=== PATIENT | male | born 1985 | race Caucasian/White ===

== ENCOUNTER 2022-10-05 04:00 | Day surgery (SDC) | payer BC, OTHER ==
[2022-10-02 09:13] VITALS: BMI 25.8
[2022-10-05 06:23] VITALS: RESP 20
[2022-10-05] MEDS ORDERED: FENTANYL CITRATE/PF 50 MCG/ML VIAL ONE (07:02)
[2022-10-05] MEDS ORDERED: PROPOFOL 20 ML ONE (07:02)
[2022-10-05] MEDS ORDERED: MIDAZOLAM HCL 2 MG/2 ML SINGLE DOSE VIAL ONE (07:03)
[2022-10-05] MEDS ORDERED: ONDANSETRON 4 MG/2 ML VIAL ONE (08:04)
[2022-10-05 09:06] VITALS: TEMP 97.1
[2022-10-05 09:56] VITALS: BP 114/64; PULSE 76
== END 2022-10-05 10:40 | disposition home or self-care (01) ==
LOC: JASU-SURG 04:00
PROVIDERS: ATTEND Urology
PROC: 0TF4XZZ Fragmentation in Left Kidney Pelvis, External Approach (ICD-10-PCS; principal; 2022-10-05 08:00)
DX: N20.0 Calculus of kidney (principal)